=== PATIENT | female | born 2000 | race Caucasian/White ===

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

== ENCOUNTER 2022-01-19 12:07 | Emergency (ER) | payer OTHER ==
[2022-01-19 12:22] VITALS: BP 130/88
--- NOTE | 2022-01-19 13:15 | ED Physician Documentation ---
PD HPI DYSPNEA - Stated complaint Stated Complaint: SOA - Chief complaint Chief Complaint: Resp - History obtained from History obtained from: Patient PD PAST MEDICAL HISTORY - Past Medical History Respiratory: Asthma - Past Surgical History Past Surgical History: Yes General: Appendectomy - Present Medications Home Medications: Ambulatory Orders Medication Instructions Recorded Confirmed No Known Home Medications 10/05/21 10/05/21 - Allergies Allergies/Adverse Reactions: Allergies Allergy/AdvReac Type Severity Reaction Status Date / Time amoxicillin AdvReac Hives Verified 01/19/22 12:11 Penicillins AdvReac Hives Verified 01/19/22 12:11 sulfamethoxazole AdvReac Hives Verified 01/19/22 12:11 [From Bactrim] trimethoprim [From Bactrim] AdvReac Hives Verified 01/19/22 12:11 - Social History Does the pt smoke?: No Smoking Status: Never smoker Does the pt drink ETOH?: No Does the pt have substance abuse?: No - Immunizations Immunizations are current?: Yes Results - Vitals Vitals: Vital Signs - 24 hr 01/19/22 12:11 Temperature 36.5 C Heart Rate 95 Respiratory 16 Rate Blood Pressure 130/88 H O2 Saturation 100 Oxygen O2 Source Room air
[2022-01-19] MEDS ORDERED: predniSONE 20 MG TABLET PO STA (13:20)
--- NOTE | 2022-01-19 13:24 | ED Physician Documentation ---
PD HPI DYSPNEA - Stated complaint Stated Complaint: SOA - Chief complaint Chief Complaint: Resp - History obtained from History obtained from: Patient - History of Present Illness Timing - onset: Today Timing - details: Gradual onset Pain level max: 0 Pain level now: 0 Improved by: Inhaler/neb Worsened by: Exertion, Coughing Associated symptoms: Cough, Wheezing. No: Fever - Additional information Additional information: Patient is a 21-year-old female who presents to the emergency department with increasing difficulty breathing today. Similar to her usual asthma. She denies any fevers. Mild dry cough. Has had some wheezing. She does not use a spacer with her inhaler. It is better with the inhaler, worse with walking or coughing. No pain. She has had her Covid vaccinations. Review of Systems Constitutional: denies: Fever, Chills GI: denies: Vomiting, Diarrhea Skin: denies: Rash Musculoskeletal: denies: Neck pain, Back pain Neurologic: denies: Headache PD PAST MEDICAL HISTORY - Past Medical History Past Medical History: Yes Respiratory: Asthma - Past Surgical History Past Surgical History: Yes General: Appendectomy - Present Medications Home Medications: Ambulatory Orders Medication Instructions Recorded Confirmed predniSONE [Deltasone] 40 mg PO DAILY #10 tablet 01/19/22 - Allergies Allergies/Adverse Reactions: Allergies Allergy/AdvReac Type Severity Reaction Status Date / Time amoxicillin AdvReac Hives Verified 01/19/22 12:11 Penicillins AdvReac Hives Verified 01/19/22 12:11 sulfamethoxazole AdvReac Hives Verified 01/19/22 12:11 [From Bactrim] trimethoprim [From Bactrim] AdvReac Hives Verified 01/19/22 12:11 - Social History Does the pt smoke?: No Smoking Status: Never smoker Does the pt drink ETOH?: No Does the pt have substance abuse?: No - Immunizations Immunizations are current?: Yes PD ED PE NORMAL - Vitals Vital signs reviewed: Yes - General General: Alert and oriented X 3, No acute distress - HEENT HEENT: PERRL, Moist mucous membranes - Neck Neck: Supple, no meningeal sign - Cardiac Cardiac: RRR - Respiratory Respiratory: No respiratory distress, Other (Mildly diminished breath sounds bilaterally. Mild wheeze.) - Abdomen Abdomen: Soft, Non tender, Non distended - Derm Derm: Warm and dry - Neuro Neuro: Alert and oriented X 3 - Psych Psych: Normal mood, Normal affect Results - Vitals Vitals: Vital Signs - 24 hr 01/19/22 12:11 Temperature 36.5 C Heart Rate 95 Respiratory 16 Rate Blood Pressure 130/88 H O2 Saturation 100 Oxygen O2 Source Room air PD MEDICAL DECISION MAKING - ED course Complexity details: reviewed results, re-evaluated patient, d/w patient ED course: Patient is very well-appearing, nontoxic. Afebrile. No hypoxia. No respiratory distress. Will place on course of steroids for home. She was given a spacer and instructions on how to use it with her albuterol inhaler. Teaching done by respiratory therapy. Covid test sent. Patient counseled regarding signs and symptoms for which I believe and urgent re-evaluation would be necessary. Patient with good understanding of and agreement to plan and is comfortable going home at this time This document was made in part using voice recognition software. While efforts are made to proofread this document, sound alike and grammatical errors may occur. Departure - Departure Disposition: 01 Home, Self Care Clinical Impression: Asthma Qualifiers: Asthma severity: unspecified severity Asthma persistence: unspecified Asthma complication type: with acute exacerbation Qualified Code(s): J45.901 - Unspecified asthma with (acute) exacerbation Condition: Good Instructions: ED Reactive Airway Disease Follow-Up: Tesfaye Denise MD [Primary Care Provider] - Prescriptions: predniSONE [Deltasone] 40 mg PO DAILY #10 tablet Comments: Please follow up with your doctor for further care. Return if you worsen. Your prescription was sent to [facility] in [place] Discharge Date/Time: 01/19/22 13:52
== END 2022-01-19 13:52 | disposition home or self-care (01) ==
LOC: ED 12:07
DX: J45.901 Unspecified asthma with (acute) exacerbation (principal); Z20.822 Contact with and (suspected) exposure to COVID-19
CPT/HCPCS: 87635; 94664; 99283; 99284; J7512

== ENCOUNTER 2022-04-04 10:45 | Outpatient (CLI) | payer OTHER | END 2022-04-04 10:46 | disposition home or self-care (01) | LOC: RT 10:45 | PROVIDERS: ATTEND Physician Assistant | DX: J45.20 Mild intermittent asthma, uncomplicated (principal) | CPT/HCPCS: 94060 ==

== ENCOUNTER 2022-12-01 12:06 | Emergency (ER) | payer OTHER ==
[2022-12-01 12:14] VITALS: BP 143/85
--- NOTE | 2022-12-01 12:20 | ED Physician Documentation ---
PD HPI SKIN - Stated complaint Stated Complaint: FACIAL RASH - Chief complaint Chief Complaint: Allergic Rx - History obtained from History obtained from: Patient - Additional information Additional information: 22-year-old who had childhood eczema was wearing a virtual reality headset all day that she had not used before. Yesterday evening developed an itchy rash in the distribution of where she was wearing the headset on her face. She tried some oral Benadryl which was helpful for sleeping and the itching. Review of Systems Constitutional: reports: Reviewed and negative Throat: reports: Reviewed and negative Cardiac: reports: Reviewed and negative PD PAST MEDICAL HISTORY - Past Medical History Respiratory: Asthma - Past Surgical History Past Surgical History: Yes General: Appendectomy - Present Medications Home Medications: Ambulatory Orders Medication Instructions Recorded Confirmed predniSONE [Deltasone] 40 mg PO DAILY #10 tablet 01/19/22 Hydrocortisone 1% Oint 2 gm TOP QID #3 ea 12/01/22 [Hydrocortisone] predniSONE [Deltasone] 20 mg PO [id number] #21 tab 12/01/22 - Allergies Allergies/Adverse Reactions: Allergies Allergy/AdvReac Type Severity Reaction Status Date / Time amoxicillin AdvReac Hives Verified 12/01/22 12:14 Penicillins AdvReac Hives Verified 12/01/22 12:14 sulfamethoxazole AdvReac Hives Verified 12/01/22 12:14 [From Bactrim] trimethoprim [From Bactrim] AdvReac Hives Verified 12/01/22 12:14 - Social History Does the pt smoke?: No Smoking Status: Never smoker Does the pt drink ETOH?: No Does the pt have substance abuse?: No - Immunizations Immunizations are current?: Yes PD ED PE NORMAL - Vitals Vital signs reviewed: Yes - General General: Alert and oriented X 3, No acute distress - Derm Derm: Other (Contact dermatitis clearly in the pattern of where the VR headset was over the forehead, lateral periorbital areas and upper cheeks.) - Neuro Neuro: Alert and oriented X 3, Normal speech Results - Vitals Vitals: Vital Signs - 24 hr 12/01/22 12:10 Temperature 36.9 C Heart Rate 93 Respiratory 16 Rate Blood Pressure 143/85 H O2 Saturation 98 Oxygen O2 Source Room air Departure - Departure Disposition: Home, Self Care Clinical Impression: Contact dermatitis Condition: Good Record reviewed to determine appropriate education?: Yes Instructions: ED Dermatitis Contact Prescriptions: predniSONE [Deltasone] 20 mg PO [id number] #21 tab Hydrocortisone 1% Oint [Hydrocortisone] 2 gm TOP QID #3 ea Comments: Follow-up with your doctor in a week if not better, return for new or worsening symptoms.
== END 2022-12-01 12:23 | disposition home or self-care (01) ==
LOC: ED 12:06
DX: L25.9 Unspecified contact dermatitis, unspecified cause (principal)
CPT/HCPCS: 99282; 99283

== ENCOUNTER 2022-12-14 17:30 | Outpatient (CLI) | payer OTHER | END 2022-12-14 23:59 | disposition home or self-care (01) | LOC: LAB.N 17:30 | PROVIDERS: ATTEND Family Medicine | DX: R07.0 Pain in throat (principal) | CPT/HCPCS: 87070; 87077 ==

== ENCOUNTER 2023-09-05 12:50 | Outpatient (CLI) | payer OTHER ==
--- NOTE | 2023-09-05 13:29 | Sleep Patient Instructions ---
Sleep Center Visit Summary - Patient Visit Information Reason for Visit: Initial consult for evaluation of sleep disordered breathing and other sleep issues. - Patient Instructions Instructions Attached: Sleep Study Home Monitor, Sleep Study Additional Instructions: You will be completing a sleep study, either an in-lab polysomnography (PSG) or home sleep study (HST). You will follow-up in the sleep care office after the sleep study is completed to hear the results and talk about therapy, if needed. You will be called by our office staff to schedule this appointment, but you may contact us with any questions. - Clinic Information Contact: [facility] [address] [place] [id number] [email or web address] T: [phone]
--- NOTE | 2023-09-05 13:35 | SLEEP CARE CONSULTATION ---
Information from patient questionnaire entered by Sara Tompkins. I have reviewed and concur with the information entered by Sara Tompkins. This document represents the service I personally performed and the decisions made by me, Brenda Vergara ARNP. History of Present Illness Service Date and Time: 09/05/2023 1250 Reason for Visit: New patient Chief Complaint: reports: Unrefreshed sleep, Excessive daytime sleepiness, Fatigue, Frequent awakenings at night Date of Onset: 5YRS Usual bedtime: 10-11PM Time it takes to fall asleep: 30-60MIN Snores at night: Yes Observed to quit breathing while asleep: No Sleeps alone due to snoring: No Number of times waking at night: 2-3 Reasons for waking at night: reports: Choking (once woke up "coughing"), Snoring, Bathroom. denies: Gasping for air Toss, Turn, or Twitch while sleeping: Yes Recalls having dreams: Yes Usually gets out of bed at: 7-715AM; weekends [id number] Feels refreshed in the morning: No Morning headache: Yes (2-3 times a week; resolve by noon/lunch) Sleepy or fatigued during the day: Yes Ever fallen asleep while driving: Yes (drowsy driving; drifted but no accidents) Takes day naps: Yes (4-5 times a week; 30 mins or less when at work; couple hrs weekends) Dreams during day naps: Yes Prior sleep studies: No Additional HPI information: I had the pleasure of seeing YANELI HUIZAR today regarding the possibility of her having a sleep disorder. Her current complaints are excessive daytime sleepiness, fatigue, frequent night awakenings and unrefreshed sleep. She states that she has noticed since she was young of being tired during the day and not feeling rested even when she gets enough sleep. She has been told that she snores loudly. She does not always wake up feeling rested. She has woken herself up with snoring and once coughing. She does have a history of asthma. She has woken up with headaches which resolve by lunchtime. She says if she is very tired and having a hard time at work with sleepiness, she will take a 30 minute nap in her car. She may take up to 2 hour nap on the weekend. She says her sister was just diagnosed with sleep apnea and is getting her tonsils removed for her treatment. - Parasomnia Symptoms Ever been unable to move upon waking from sleep: Yes (once) Walks in sleep: No Talks in sleep: No Ever acted out dreams in sleep: No Ever felt weak in the knees when startled or emotional: Yes (has not fallen to ground) Bothered by creepy, crawly, restless sensations in legs: Yes (when trying to sleep, wierd sensations in feet) Problems with memory or concentration: Yes (both) Subjective Initial Hickman Sleepiness Scale score: 13 (09/05/23) Past Medical History Past Medical History: reports: Diabetes (pre-), Anxiety, Asthma, Depression, Attention deficit (ADHD) Social History 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 Patient is Single and lives in . Have you smoked in the past 12 months: No Alcohol use: No Caffeine use: Yes Caffeine amount and frequency: 6OZ 2-3 X A MONTH Family History Family history of sleep disordered breathing: Yes Family Hx Sleep Apnea: Mother: Snoring, Sibling: Snoring, Sleep apnea - Untre ated Allergies and Home Medications Known drug allergies: Yes (as listed) Drug allergies reviewed: Yes Home medication list reviewed: Yes Allergy and home medication list: Allergies amoxicillin Adverse Reaction (Verified 09/04/23 12:50) Hives Penicillins Adverse Reaction (Verified 09/04/23 12:50) Hives sulfamethoxazole [From Bactrim] Adverse Reaction (Verified 09/04/23 12:50) Hives trimethoprim [From Bactrim] Adverse Reaction (Verified 09/04/23 12:50) Hives Review of Systems Weight gain over past 5 years: 150 Weight loss over past 5 years: 10 in last few weeks Cardiovascular: denies: high blood pressure Respiratory: reports: shortness of breath Gastrointestinal: reports: diarrhea. denies: heartburn Urinary: reports: frequency Neurological: reports: headaches Psychiatric: reports: Attention Deficit Hyperactivity, anxiety, depression Ear/Nose/Throat: reports: nasal congestion, wisdom teeth removed. denies: tonsillectomy Endocrine: reports: sluggishness, too hot or cold, excessive thirst Musculoskeletal: reports: joint pain Immunologic: reports: sneezing, allergies to food or environment (cats, mold) Physical Exam Vital signs obtained and entered by: SARA Reaves MA Blood Pressure: 97/77 (LEFT ARM) Cuff size: regular Heart Rate: 90 O2 Saturation: 94 Height: 5 ft 7 in Weight: 302 lb 6.4 oz Body Mass Index: 47.3 BMI Classification: Morbidly Obese Neck circumference: 17.5 Mouth and throat: narrow oropharynx Soft palate: normal Hard palate: normal Uvula: normal Uvula visualization: 50% Mallampati Class II Tonsils: 2+ Neck: normal w/o lymphadenopathy or thyromegaly Heart: regular rate and rhythm Lungs: clear bilaterally Impression and Plan 1. Suspected Obstructive Sleep Apnea-Hypopnea Syndrome, as suggested by a history of loud and irregular snoring, morning headache, frequent awakening during the night, unrefreshed sleep, cognitive impairment, and excessive daytime sleepiness. Narrow oropharynx and obesity are common predisposing factors for obstructive sleep apnea-hypopnea syndrome. I recommend proceeding to polysomno graphy to confirm the diagnosis and to assess severity. If the patient has significant sleep disordered breathing, a manual CPAP titration study will also be performed to find the optimal treatment pressure. I informed the patient of what the sleep studies involve and after some discussion, obtained agreement to proceed. The pathophysiology of obstructive sleep apnea-hypopnea syndrome was discussed with the patient and health risks of cardiovascular and cerebrovascular disease if not treated. Risks of drowsy driving discussed in detail and patient advised to avoid long distance driving and to gizzard puller at the first sign of drowsiness. Patient agreed to plan. * Schedule polysomnography * Avoid long distance driving or driving when feeling sleepy. * Avoid alcohol, sedative and muscle relaxant around bedtime. * Attempt to lose weight. * Review instructions provided by trained office staff on how to prepare for the sleep study. * Return for follow-up after sleep study completed. Counseling Topics: Weight loss health impact Plan: PSG Visit Type: In Office Time Spent with Patient (minutes): 30 Provider Statement: I spent 100% of the Face to Face Visit with the patient with greater than 50% spent counseling the patient and coordination of care.
[2023-09-05 13:43] VITALS: BP 97/77; O2SAT 94
== END 2023-09-05 12:51 | disposition home or self-care (01) ==
LOC: SC 12:50
PROVIDERS: ATTEND Nurse Practitioner Family
DX: R06.83 Snoring (principal); R51.9 Headache, unspecified; G47.8 Other sleep disorders; R41.89 Other symptoms and signs involving cognitive functions and awareness; G47.10 Hypersomnia, unspecified; E66.01 Morbid (severe) obesity due to excess calories; Z68.42 Body mass index [BMI] 45.0-49.9, adult
CPT/HCPCS: 99203; 99212

== ENCOUNTER 2023-10-02 19:24 | Outpatient (CLI) | payer OTHER | END 2023-10-02 19:25 | disposition home or self-care (01) | LOC: SC 19:24 | PROVIDERS: ATTEND Nurse Practitioner Family | DX: R06.83 Snoring (principal); G47.10 Hypersomnia, unspecified; G47.8 Other sleep disorders; R51.9 Headache, unspecified; E66.01 Morbid (severe) obesity due to excess calories; E11.9 Type 2 diabetes mellitus without complications | CPT/HCPCS: 95810 ==

== ENCOUNTER 2023-10-04 16:48 | Outpatient (CLI) | payer OTHER ==
--- NOTE | 2023-10-05 16:34 | XRAY Report ---
PROCEDURE: Wrist 4 View LT INDICATIONS: LEFT WRIST PAIN TECHNIQUE: 3 views of the wrist were acquired. COMPARISON: None. FINDINGS: Bones: No fractures or dislocations. No suspicious bony lesions. Soft tissues: No suspicious soft tissue calcifications or masses. IMPRESSION: No acute fracture. No osseous lesion. If symptoms and/or clinical suspicion for pathology continue, f urther assessment with repeat plain films, or advanced imaging (e.g., CT, MRI, or bone scan) is recom mended for further assessment. Reviewed by: Aba Ugalde MD on 10/05/2023 4:33 PM PST Approved by: Aba Ugalde MD on 10/05/2023 4:33 PM PST Station ID: [id number]
== END 2023-10-04 16:49 | disposition home or self-care (01) ==
LOC: DI 16:48
PROVIDERS: ATTEND Physician Assistant
DX: M25.532 Pain in left wrist (principal)

== ENCOUNTER 2023-10-16 08:22 | Outpatient (CLI) | payer OTHER ==
--- NOTE | 2023-10-16 08:50 | Sleep Patient Instructions ---
Sleep Center Visit Summary - Patient Visit Information Reason for Visit: Sleep study followup - Patient Instructions Instructions Attached: Snoring Tips Prevent Additional Instructions: Your sleep study today was negative for significant sleep disordered breathing. However, you did have elevated respiratory episodes when sleeping on your back. You should avoid sleeping on your back to control these respiratory episodes. You were found to have episodes of snoring. There are different ways to control snoring including weight loss, oral devices made by a dentist or surgical options through ENT specialist. You should not use oral devices that do not fit properly because they can affect your bite. You should also check insurance coverage of oral devices for snoring because they may not be cover well. You may obtain a referral to an ENT specialist through your primary provider. Follow-up as needed. - Clinic Information Contact: [facility] [address] [place] [address] [email or web address] T: [phone]
--- NOTE | 2023-10-16 08:52 | SLEEP CARE CONSULTATION ---
Information from patient questionnaire entered by Saadia Tompkins. I have reviewed and concur with the information entered by Saadia Tompkins. This document represents the service I personally performed and the decisions made by , Brenda Vergara ARNP. History of Present Illness Service Date and Time: 10/16/2023821 Initial Stollings Sleepiness Scale score: 13 (09/05/23) Current Stollings Sleepiness Scale score: 18 Additional HPI information: YANELI HUIZAR returns for follow up and results of the recently performed polysomnography. The patient was informed of the following findings: No significant sleep disordered breathing with an average AHI of 3.7 and clarice oxygen saturation of 85%. I explained the pathophysiology behind obstructive sleep apnea. Patient does not have sleep apnea and was advised how weight gain could increase the risk of developing sleep apnea in the future. I strongly encouraged the patient to lose weight. Patient does not have significant sleep disordered breathing but has elevated AHI in supine position so advised positional therapy. Methods to achieve positional management therapy were discussed; such as, positioning with pillows, wearing a T-shirt with tennis balls sewn into the back, or commercially available products. Patient has light to moderate snoring. Snoring can be reduced by weight loss. Weight loss is best achieved with diet consult. Patient instructed to contact PCP for referral. Snoring can also be treated with an oral appliance from a dentist. Advised to check insurance coverage. In addition, an ENT evaluation can be do to see if other treatment is indicated. Patient counseled not drink alcohol less than 4 hours before bedtime as it can increase snoring and apnea. Patient was cautioned about risks of drowsy driving until sleepiness symptoms resolve. Sleep Study - Results Type of Sleep Study: Polysomnography (COMPLETED 10/02/23) Prior sleep studies: No Polysomnography/Home Sleep Study results: IMPRESSION: The quality of the study is good. The patient had normal sleep efficiency. The sleep architecture was abnormal for mild sleep fragmentation and reduced amount of time spent in REM and slow wave sleep (N3) Respiratory monitoring showed no significant sleep disordered breathing (AHI = 3.7) associated with frequent arousals, oxyhemoglobin desaturation and mild hypoxia (clarice oxygen saturation of 85% only 0.6% to the total sleep time was spent with oxygen saturation below 90%). The few respiratory events occurred almost exclusively during supine REM sleep (supine AHI = 6.5; non-supine = 2.31). Snore was light to moderate in intensity. There was no significant periodic leg movement of sleep. Cardiac rhythm was normal sinus rhythm without significant arrhythmia. No abnormal behavior (parasomnia) observed during the night. Allergies and Home Medications Known drug allergies: Yes (as listed) Drug allergies reviewed: Yes Home medication list reviewed: Yes (hydroxyzine prn anxiety) Allergy and home medication list: Allergies amoxicillin Adverse Reaction (Verified 10/15/23 08:35) Hives Penicillins Adverse Reaction (Verified 10/15/23 08:35) Hives sulfamethoxazole [From Bactrim] Adverse Reaction (Verified 10/15/23 08:35) Hives trimethoprim [From Bactrim] Adverse Reaction (Verified 10/15/23 08:35) Hives Review of Systems Review of systems same as previous: Yes (no changes) Physical Exam Vital signs obtained and entered by: BRENDA OTERO Blood Pressure: 120/67 Cuff size: regular (left arm) Heart Rate: 109 O2 Saturation: 97 Height: 5 ft 7 in Weight: 303 lb 9.6 oz Body Mass Index: 47.5 BMI Classification: Morbidly Obese Impression and Plan 1. Snoring but no significant sleep disordered breathing. However, patient has mildly elevated supine AHI of 6.5 and should avoid sleeping supine. Patient advised that often weight loss will reduce snoring as well as apnea risk. An oral appliance can also be used for snoring. This would require a dental consultation. Patient cautioned not to use other online appliances as can cause bite issues. Patient is advised to check if insurance will cover. An ENT consult can also be helpful to determine if any other treatment is an option. 2. Obesity, unspecified. Currently patients BMI is 47.5. Obesity increases the risk of apnea, CPAP pressure requirements and overall health risks especially cardiovascular and diabetes. Thus patient is advised to lose weight. * Avoid sleeping supine * Attempt to lose weight * Avoid alcohol consumption near bedtime * The patient is cautioned about driving until sleepiness is completely resolved. * Return as needed for follow up. Counseling Topics: Sleeping position, Weight loss health impact Follow up with Sleep Care in: as needed Visit Type: In Office Time Spent with Patient (minutes): 20 Provider Statement: I spent 100% of the Face to Face Visit with the patient with greater than 50% spent counseling the patient and coordination of care.
[2023-10-16 08:54] VITALS: BP 120/67; O2SAT 97
== END 2023-10-16 08:23 | disposition home or self-care (01) ==
LOC: SC 08:22
PROVIDERS: ATTEND Nurse Practitioner Family
DX: R06.83 Snoring (principal); E66.01 Morbid (severe) obesity due to excess calories; Z68.42 Body mass index [BMI] 45.0-49.9, adult
CPT/HCPCS: 99212; 99213

== ENCOUNTER 2024-01-09 08:00 | Outpatient (CLI) | payer OTHER ==
[2024-01-10 19:52] LABS: BACTERIAL VAGINOSIS DNA NEGATIVE (NEGATIVE); CANDIDA GLABRATA DNA NEGATIVE (NEGATIVE); CANDIDA GROUP DNA NEGATIVE (NEGATIVE); CANDIDA KRUSEI DNA NEGATIVE (NEGATIVE); TRICHOMONAS VAGINALIS DNA NEGATIVE (NEGATIVE)
== END 2024-01-09 08:01 | disposition home or self-care (01) ==
LOC: LAB.WC 08:00
PROVIDERS: ATTEND Nurse Practitioner
DX: N89.8 Other specified noninflammatory disorders of vagina (principal)
CPT/HCPCS: 81514

== ENCOUNTER 2024-01-22 08:00 | Outpatient (CLI) | payer OTHER | END 2024-01-22 23:59 | disposition home or self-care (01) | LOC: LAB.WC 08:00 | PROVIDERS: ATTEND Obstetrics & Gynecology | DX: N89.8 Other specified noninflammatory disorders of vagina (principal) | CPT/HCPCS: 81599; 87109 ==